=== PATIENT | female | born 1945 | race Caucasian/White ===

== ENCOUNTER → 2016-11-19 | Outpatient (CLI) | payer MEDICARE, BC | LOC: COL.RAD 13:59 | DX: M54.5 Low back pain (principal) | CPT/HCPCS: J3301 ==

== ENCOUNTER → 2017-05-27 | Outpatient (CLI) | payer MEDICARE, BC ==
[~2017-05-27] MED LIST: B-12 500 MCG PO; FOLIC ACID0.4 MG PO; HYZAAR 25 MG-101 TAB PO; KLOR-CON 1010 MEQ PO; LIPITOR 40MG TA40 MG PO; NEXIUM 20MG20 MG PO; VITAMIN B COMPL1 SGL PO; VITAMIN B-1000 MCG/T PO; VITAMIN B-625 MG PO; VITAMIN C500 MG PO
== END ==
LOC: COL.RAD 12:49
DX: M54.5 Low back pain (principal); Z90.710 Acquired absence of both cervix and uterus
CPT/HCPCS: J3301

== ENCOUNTER → 2017-06-23 | Outpatient (CLI) | payer MEDICARE, BC ==
[2017-06-23 15:10] LABS: HEMATOCRIT 38.3 % (37.0-47.0); HEMOGLOBIN 13.5 g/dl (12.5-16.0); MEAN CELL VOLUME 90 fl (80.0-100.0); MEAN CORPUSCULAR HEMOGLOBIN 32 pg (27.0-31.0); MEAN CORPUSCULAR HGB CONC 35 g/dl (33.0-37.0); PLATELET COUNT 283 K/mm3 (130-400); RED BLOOD COUNT 4.27 M/mm3 (4.10-5.30); REDCELL DISTRIBUTION WIDTH-CV 12.8 % (11.5-14.5)
[2017-06-23 15:30] LABS: ERYTHROCYTE SEDIMENTATION RATE 7 mm/hr (0-30)
== END ==
LOC: COL.LAB 14:51
PROVIDERS: Orthopaedic Surgery
DX: M25.461 Effusion, right knee (principal); Z96.651 Presence of right artificial knee joint